=== PATIENT | male | born 1950 | race American Indian/Alaskan Native ===

== ENCOUNTER 2019-09-12 16:17 | Emergency (ER) | payer MEDICARE, OTHER ==
--- NOTE | 2019-09-12 16:52 | EDM.PDOC ---
ED HPI GENERAL MEDICAL PROBLEM - General Chief Complaint: Genitourinary Problem Stated Complaint: JOSEF CAME OUT Time Seen by Provider: 09/12/19 16:19 Source of Information: Reports: Patient History Limitations: Reports: No Limitations - History of Present Illness INITIAL COMMENTS - FREE TEXT/NARRATIVE: Presents reporting about 2-3 months ago he could no longer urinate. A Matthews catheter was placed by his primary provider in [place], [place]. He has been wearing a leg bag keeping the Matthews catheter in until this past Wednesday when he saw Dr. Rashid in [place]. Dr. Rashid did a cystoscope. The patient states he found no problems but inserted a new Matthews catheter. The patient states that last night he noticed some burning and irritation in his penis. He last emptied his bag about 12 hours ago and there has been very little urine output today. He states that he has drank the same amount that he usually does. He denies fever or any other symptoms. He does feel a lot of crampy pressure over his bladder - Related Data Allergies Allergy/AdvReac Type Severity Reaction Status Date / Time aspirin Allergy Hives Verified 09/12/19 16:23 Home Meds: Home Meds Nitrofurantoin Monohyd/M-Cryst [Macrobid 100 mg Capsule] 1 cap PO BID #14 capsule 09/12/19 [Rx] Past Medical History Genitourinary History: Reports: Other (See Below) Other Genitourinary History: chronic matthews cath Neurological History: Reports: Parkinson's - Infectious Disease History Infectious Disease History: Reports: Chicken Pox Social & Family History - Family History Family Medical History: Noncontributory - Tobacco Use Smoking Status *Q: Never Smoker - Caffeine Use Caffeine Use: Reports: None - Recreational Drug Use Recreational Drug Use: No ED ROS GENERAL - Review of Systems Review Of Systems: Comprehensive ROS is negative, except as noted in HPI. ED EXAM, GI/ABD - Physical Exam Exam: See Below Exam Limited By: No Limitations General Appearance: Alert, No Apparent Distress Ears: Normal External Exam Nose: Normal Inspection Throat/Mouth: Normal Inspection Head: Atraumatic, Normocephalic Neck: Normal Inspection Respiratory/Chest: No Respiratory Distress, Lungs Clear, Normal Breath Sounds Cardiovascular: Normal Peripheral Pulses, Regular Rate, Rhythm, No Murmur (Male) Exam: Other (Tenderness over bladder. Matthews catheter in place connected to leg bag draining clear delma urine) Back Exam: Normal Inspection Extremities: Normal Inspection Neurological: Alert, Oriented, Normal Cognition Psychiatric: Normal Affect, Normal Mood Skin Exam: Warm, Dry, Intact, Normal Color, No Rash Lymphatic: No Adenopathy Course - Vital Signs Last Recorded V/S: Last Vital Signs Temp 36.0 C 09/12/19 16:24 Pulse 78 09/12/19 16:24 Resp 18 09/12/19 16:24 BP 159/87 H 09/12/19 16:24 Pulse Ox 100 09/12/19 16:24 - Orders/Labs/Meds Orders: Active Orders 24 hr Category Date Time Status Matthews Catheter Insertion [Insert Urinary Catheter] [OM. Care 09/12/19 16:45 Ordered PC] Q24H Urinary Catheter Assessment [RC] ASDIRECTED Care 09/12/19 16:36 Active Labs: Laboratory Tests 09/12/19 Range/Units 17:05 Urine Color YELLOW Urine Appearance SLT CLOUDY Urine pH 6.0 (5.0-8.0) Ur Specific Bishop 1.010 (1.001-1.035) Urine Protein 30 H (NEGATIVE) mg/dL Urine Glucose (UA) NEGATIVE (NEGATIVE) mg/dL Urine Ketones NEGATIVE (NEGATIVE) mg/dL Urine Occult Blood SMALL H (NEGATIVE) Urine Nitrite POSITIVE H (NEGATIVE) Urine Bilirubin NEGATIVE (NEGATIVE) Urine Urobilinogen 0.2 (<2.0) EU/dL Ur Leukocyte Esterase MODERATE H (NEGATIVE) Urine RBC 1-3 (0-2/HPF) Urine WBC 20-30 (0-5/HPF) Ur Epithelial Cells RARE (NONE-FEW) Urine Bacteria 3+ H (NEGATIVE) - Re-Assessments/Exams Free Text/Narrative Re-Assessment/Exam: 09/12/19 17:39 On further examination, nursing noticed that the catheter was kinked. The leg bag filled to 400cc quickly and was emptied. Free Text/Narrative Re-Assessment/Exam: 09/12/19 17:42 An additional 400 mL was drained from the catheter, the patient states that the bladder pressure was relieved. Departure - Departure Time of Disposition: 17:43 Disposition: Home, Self-Care 01 Condition: Good Clinical Impression: Urinary tract infection Qualifiers: Urinary tract infection type: catheter-associated UTI - Discharge Information Referrals: PCP,Not In Area [Primary Care Provider] - Domingo Rashid MD [Physician] - Forms: ED Department Discharge Additional Instructions: 1. Keep urinary catheter and tubing free of kinks. 2. Take Your antibiotic twice daily starting today 3. Drink Plenty of fluids 4. Follow up with your primary provider in [place] or Dr. Rashid in urology 5. Turn promptly for back pain, fever. Sepsis Event Note - Evaluation Sepsis Screening Result: No Definite Risk - Focused Exam Vital Signs: Vital Signs Temp Pulse Resp BP Pulse Ox 09/12/19 16:24 36.0 C 78 18 159/87 H 100 Date Exam was Performed: 09/12/19 Time Exam was Performed: 17:39 - My Orders Last 24 Hours: My Active Orders 09/12/19 16:36 Urinary Catheter Assessment [RC] ASDIRECTED 09/12/19 16:45 Matthews Catheter Insertion [Insert Urinary Catheter] [OM.PC] Q24H - Assessment/Plan Last 24 Hours: My Active Orders 09/12/19 16:36 Urinary Catheter Assessment [RC] ASDIRECTED 09/12/19 16:45 Matthews Catheter Insertion [Insert Urinary Catheter] [OM.PC] Q24H
== END 2019-09-12 18:05 | disposition home or self-care (01) ==
LOC: MW.ED 16:17
DX: T83.511A Infection and inflammatory reaction due to indwelling urethral catheter, initial encounter (principal); N39.0 Urinary tract infection, site not specified; Z88.8 Allergy status to other drugs, medicaments and biological substances
CPT/HCPCS: 81001; 99283

== ENCOUNTER 2020-02-14 18:41 | Inpatient (IN) | payer MEDICARE, MEDICAID ==
[2020-02-14] MEDS: Lactated Ringers 1,000 ML IV SCH (20:50)
[2020-02-14] MEDS: cefTRIAXone 1 GM in Premix Bag 1 BAG IV SCH (22:05)
[2020-02-14] MEDS ORDERED: Acetaminophen/HYDROcodone 325-5 MG Tab PO ONE (22:14)
[2020-02-15] MEDS: Lactated Ringers 1,000 ML IV SCH ×2 (07:31→20:47)
[2020-02-15 07:41] LABS: BLOOD UREA NITROGEN,BUN 16 mg/dL (7.0-18.0); CARBON DIOXIDE,CO2 26.4 mmol/L (21.0-32.0); CHLORIDE,CL 102 mmol/L (98-107); GLUCOSE RANDOM 243 mg/dL (74-106); POTASSIUM,K 4.6 mmol/L (3.5-5.1); SODIUM,NA 137 mmol/L (136-148)
[2020-02-15] MEDS: cefTRIAXone 1 GM in Premix Bag 1 BAG IV SCH ×2 (09:45→22:02)
[2020-02-15] MEDS: Insulin Aspart 100 Units/ML 3 ML Pen SUBCUT SCH ×2 (12:42→18:24)
[2020-02-15] MEDS: Carbidopa/Levodopa 25-100 MG Tab PO SCH ×2 (17:04→22:15)
[2020-02-15] MEDS: RIVASTIGMINE 1.5 MG PO SCH (17:05)
[2020-02-15] MEDS: Gabapentin 800 MG Tab PO SCH (20:46)
[2020-02-16] MEDS: Carbidopa/Levodopa 25-100 MG Tab PO SCH ×3 (06:00→22:06)
[2020-02-16 07:20] LABS: BLOOD UREA NITROGEN,BUN 21 mg/dL (7.0-18.0); CARBON DIOXIDE,CO2 24.8 mmol/L (21.0-32.0); CHLORIDE,CL 102 mmol/L (98-107); GLUCOSE RANDOM 241 mg/dL (74-106); POTASSIUM,K 4.6 mmol/L (3.5-5.1); SODIUM,NA 135 mmol/L (136-148)
[2020-02-16 07:22] LABS: HEMOGLOBIN A1C 10.6 % (4.5-6.2)
[2020-02-16] MEDS: Insulin Aspart 100 Units/ML 3 ML Pen SUBCUT SCH ×3 (07:24→17:14)
[2020-02-16] MEDS: RIVASTIGMINE 1.5 MG PO SCH ×3 (08:13→20:16)
[2020-02-16] MEDS: Lactated Ringers 1,000 ML IV SCH ×2 (08:33→20:20)
[2020-02-16] MEDS: Gabapentin 800 MG Tab PO SCH ×4 (08:52→20:11)
[2020-02-16] MEDS: Pimavanserin Tartrate [Nuplazid] 34 MG PO SCH ×2 (09:00→12:26)
[2020-02-16] MEDS: cefTRIAXone 1 GM in Premix Bag 1 BAG IV SCH ×2 (09:38→21:11)
--- NOTE | 2020-02-16 09:39 | PCM.SN.2 ---
- Free Text/Narrative Note: Arrived to see the patient this AM for Pre-Op exam for TURP. Nursing informed me the patient continued to be confused during the night and even required 1:1 care. After electronically reviewing the patients history CBC, BMP, Mg, HgA1C were ordered. Of note, HgA1C was 10.6 today, it was 8.5 in Nov 2019, hypomagnesemia, and UTI. Discussed this patient and lab findings with Dr Sim At this time due to the patients uncontrolled DM and continued confusion we will be cancelling surgery for today. Dr Rashid was informed by Dr Sim and agrees at this time.
--- NOTE | 2020-02-16 10:59 | PN ---
Due to concerns from the Anesthesia Department regarding his hemoglobin A1c, his confusion, his low magnesium, Anesthesia were not comfortable proceeding with the surgery. I have asked Dr. Lowry, hospitalist, to see him and see if things can be made better for the patient. In the meantime, I scanned his bladder this morning when he had about 170 mL of residual urine in his bladder, which is not large enough to require surgery. He has been voiding relatively small amounts of about 100 mL at a time and has not required to be catheterized. My plan is to see if we can make him better and probably to send him home. INDIGO GILLESPIE /[id number]
--- NOTE | 2020-02-16 11:32 | CR ---
Chest: Portable view of the chest was obtained. Comparison: No prior chest imaging. Heart size is normal. Mild tortuosity of the thoracic aorta is seen. Electrostimulating device overlies the left chest. Lungs otherwise are clear. Bony structures are grossly intact. Impression: 1. Nothing acute is definitely appreciated on frontal chest x-ray. Diagnostic code #2 This report was dictated in MDT
--- NOTE | 2020-02-16 11:33 | PCM.CONS ---
H&P History of Present Illness - General Date of Service: 02/16/20 Admit Problem/Dx: Admission Diagnosis/Problem Admission Diagnosis/Problem Transurethral prostatectomy - History of Present Illness Initial Comments - Free Text/Narative: 69 yo male with pmh of DM and BPH with advanced Parkinson with brain stimulator implanted in 2012. Patient is wheelchair bound at home and lives with son. Son reports patient has been hallucinating for the past four months. His memory and dementia has also been worsening. AT night the patient hardly sleeps due as he is afraid of his hallucinations. Due to his BPH he had been needing to go to the bathroom frequently at night. Patient has been taking Sinemet, Nuplazid, and rivastigmine. For his Diabetes he has been switch from a long acting insulin to a short acting correctional insulin. A few months ago a Matthews was placed due to urinary retention. He was seen in Dr. Rashid's clinic yesterday and patient was admitted with plans of TURP. This morning hospitalist were consulted due to concerns of his psychosis and diabetes. Bilateral Leg Pain Score (Numeric/FACES): 10 - Related Data Allergies/Adverse Reactions: Allergies Allergy/AdvReac Type Severity Reaction Status Date / Time aspirin Allergy Hives Verified 09/12/19 16:23 Penicillins Allergy Anxiety Verified 02/14/20 19:47 tetracycline Allergy Other Verified 02/14/20 19:49 Home Medications: Home Meds Nitrofurantoin Monohyd/M-Cryst [Macrobid 100 mg Capsule] 1 cap PO BID #14 capsule 09/12/19 [Rx] Albuterol/Ipratropium [DuoNeb 3.0-0.5 MG/3 ML] 3 ml .XX Q4H PRN 02/15/20 [ History] Carbidopa/Levodopa [Carbidopa-Levo 25-100 MG ODT] 1 tab PO TID 02/15/20 [History ] Gabapentin [Neurontin] 800 mg PO BID 02/15/20 [History] Losartan Potassium 25 mg PO DAILY 02/15/20 [History] Melatonin/Pyridoxine HCl (B6) [Melatonin 3 mg Tablet] 3 mg PO BEDTIME 02/15/20 [ History] Meloxicam [Mobic] 15 mg PO ACLUNCH 02/15/20 [History] Omeprazole 20 mg PO DAILY 02/15/20 [History] Pimavanserin Tartrate [Nuplazid] 34 mg PO DAILY 02/15/20 [History] Rivastigmine [Exelon] 1.5 mg PO BIDM 02/15/20 [History] Tamsulosin HCl [Flomax] 0.8 mg PO BEDTIME 02/15/20 [History] glyBURIDE [Glyburide] 5 mg PO DAILY 02/15/20 [History] metFORMIN HCl [Fortamet] 1,000 mg PO DAILY 02/15/20 [History] Past Medical History - Past Health History Medical/Surgical History: Denies Medical/Surgical History Genitourinary History: Reports: Other (See Below) Other Genitourinary History: chronic matthews cath Neurological History: Reports: Parkinson's Endocrine/Metabolic History: Reports: Diabetes, Type II Oncologic (Cancer) History: Reports: Bladder - Infectious Disease History Infectious Disease History: Reports: Chicken Pox Social & Family History - Family History Family Medical History: Noncontributory - Tobacco Use Smoking Status *Q: Never Smoker - Caffeine Use Caffeine Use: Reports: None - Recreational Drug Use Recreational Drug Use: No H&P Review of Systems - Review of Systems: Review Of Systems: Comprehensive ROS is negative, except as noted in HPI. Exam - Exam Exam: See Below - Vital Signs Vital Signs: Last Vital Signs Temp 36.7 C 02/16/20 11:00 Pulse 89 02/16/20 11:00 Resp 14 02/16/20 11:00 BP 160/80 H 02/16/20 11:00 Pulse Ox 98 02/16/20 11:00 Weight: 73.482 kg - Exam General: Alert HEENT: Mucosa Moist & Heartwell Lungs: Clear to Auscultation, Normal Respiratory Effort Cardiovascular: Regular Rate, Regular Rhythm GI/Abdominal Exam: Normal Bowel Sounds, Soft, Non-Tender Extremities: Non-Tender, No Pedal Edema Skin: Warm, Dry, Intact Neurological: Cranial Nerves Intact. No: Normal Tone Psychiatric: Hallucinations, Other (flat affect) - Patient Data Lab Results Last 24 hrs: Laboratory Results - last 24 hr 02/15/20 02/16/20 02/16/20 Range/Units 17:07 06:04 06:37 WBC (4.0-11.0) K/uL RBC (4.50-5.90) M/uL Hgb (13.0-17.0) g/dL Hct (38.0-50.0) % MCV (80.0-98.0) fL MCH (27.0-32.0) pg MCHC (31.0-37.0) g/dL RDW Std Deviation (28.0-62.0) fl RDW Coeff of Ronan (11.0-15.0) % Plt Count (150-400) K/uL MPV (7.40-12.00) fL Neut % (Auto) (48.0-80.0) % Lymph % (Auto) (16.0-40.0) % Waller % (Auto) (0.0-15.0) % Eos % (Auto) (0.0-7.0) % Baso % (Auto) (0.0-1.5) % Neut # (Auto) (1.4-5.7) K/uL Lymph # (Auto) (0.6-2.4) K/uL Waller # (Auto) (0.0-0.8) K/uL Eos # (Auto) (0.0-0.7) K/uL Baso # (Auto) (0.0-0.1) K/uL Nucleated RBC % /100WBC Nucleated RBCs # K/uL Sodium (136-148) mmol/L Potassium (3.5-5.1) mmol/L Chloride (98-107) mmol/L Carbon Dioxide (21.0-32.0) mmol/L BUN (7.0-18.0) mg/dL Creatinine (0.8-1.3) mg/dL Est Cr Clr Drug Dosing mL/min Estimated GFR (MDRD) ml/min Glucose (74-106) mg/dL POC Glucose 224 H 226 H (60-110) mg/dL Hemoglobin A1c 10.6 H (4.5-6.2) % Calcium (8.5-10.1) mg/dL Magnesium (1.8-2.4) mg/dL 02/16/20 02/16/20 02/16/20 Range/Units 06:37 06:37 06:37 WBC 6.49 (4.0-11.0) K/uL RBC 3.86 L (4.50-5.90) M/uL Hgb 11.0 L (13.0-17.0) g/dL Hct 32.8 L (38.0-50.0) % MCV 85.0 (80.0-98.0) fL MCH 28.5 (27.0-32.0) pg MCHC 33.5 (31.0-37.0) g/dL RDW Std Deviation 45.5 (28.0-62.0) fl RDW Coeff of Ronan 15 (11.0-15.0) % Plt Count 293 (150-400) K/uL MPV 10.60 (7.40-12.00) fL Neut % (Auto) 51.4 (48.0-80.0) % Lymph % (Auto) 32.5 (16.0-40.0) % Waller % (Auto) 10.2 (0.0-15.0) % Eos % (Auto) 5.1 (0.0-7.0) % Baso % (Auto) 0.8 (0.0-1.5) % Neut # (Auto) 3.3 (1.4-5.7) K/uL Lymph # (Auto) 2.1 (0.6-2.4) K/uL Waller # (Auto) 0.7 (0.0-0.8) K/uL Eos # (Auto) 0.3 (0.0-0.7) K/uL Baso # (Auto) 0.1 (0.0-0.1) K/uL Nucleated RBC % 0.0 /100WBC Nucleated RBCs # 0 K/uL Sodium 135 L (136-148) mmol/L Potassium 4.6 (3.5-5.1) mmol/L Chloride 102 (98-107) mmol/L Carbon Dioxide 24.8 (21.0-32.0) mmol/L BUN 21 H (7.0-18.0) mg/dL Creatinine 1.0 (0.8-1.3) mg/dL Est Cr Clr Drug Dosing 69.72 mL/min Estimated GFR (MDRD) > 60.0 ml/min Glucose 241 H (74-106) mg/dL POC Glucose (60-110) mg/dL Hemoglobin A1c (4.5-6.2) % Calcium 8.7 (8.5-10.1) mg/dL Magnesium 1.5 L (1.8-2.4) mg/dL 02/16/20 Range/Units 11:03 WBC (4.0-11.0) K/uL RBC (4.50-5.90) M/uL Hgb (13.0-17.0) g/dL Hct (38.0-50.0) % MCV (80.0-98.0) fL MCH (27.0-32.0) pg MCHC (31.0-37.0) g/dL RDW Std Deviation (28.0-62.0) fl RDW Coeff of Ronan (11.0-15.0) % Plt Count (150-400) K/uL MPV (7.40-12.00) fL Neut % (Auto) (48.0-80.0) % Lymph % (Auto) (16.0-40.0) % Waller % (Auto) (0.0-15.0) % Eos % (Auto) (0.0-7.0) % Baso % (Auto) (0.0-1.5) % Neut # (Auto) (1.4-5.7) K/uL Lymph # (Auto) (0.6-2.4) K/uL Waller # (Auto) (0.0-0.8) K/uL Eos # (Auto) (0.0-0.7) K/uL Baso # (Auto) (0.0-0.1) K/uL Nucleated RBC % /100WBC Nucleated RBCs # K/uL Sodium (136-148) mmol/L Potassium (3.5-5.1) mmol/L Chloride (98-107) mmol/L Carbon Dioxide (21.0-32.0) mmol/L BUN (7.0-18.0) mg/dL Creatinine (0.8-1.3) mg/dL Est Cr Clr Drug Dosing mL/min Estimated GFR (MDRD) ml/min Glucose (74-106) mg/dL POC Glucose 241 H (60-110) mg/dL Hemoglobin A1c (4.5-6.2) % Calcium (8.5-10.1) mg/dL Magnesium (1.8-2.4) mg/dL Result Diagrams: 02/16/20 06:37 02/16/20 06:37 Sepsis Event Note - Evaluation Sepsis Screening Result: No Definite Risk - Focused Exam Vital Signs: Vital Signs Temp Pulse Resp BP Pulse Ox 02/16/20 11:00 36.7 C 89 14 160/80 H 98 02/16/20 07:46 36.6 C 02/16/20 07:43 97 16 190/86 H 100 02/16/20 03:00 36.7 C 86 14 180/84 H 98 Date Exam was Performed: 02/16/20 Time Exam was Performed: 22:08 Consult PN Assessment/Plan Procedures: Procedures ASSAY OF PSA TOTAL (11/08/17) CYSTOSCOPY (10/28/16) EMERGENCY DEPT VISIT (09/12/19) ROUTINE VENIPUNCTURE (11/08/17) URINALYSIS AUTO W/SCOPE (09/12/19) URINALYSIS NONAUTO W/SCOPE (11/14/14) URINE CULTURE/COLONY COUNT (11/08/17) Problem List Initiated/Reviewed/Updated: Yes My Orders Last 24 Hours: My Active Orders 02/16/20 11:03 CXR [Chest 1V Frontal] [CR] Routine UA RFX JERRY AND CULT IF INDIC [URIN] Routine 02/16/20 11:31 Notify Provider Consults [RC] ASDIRECTED Consult to Physician [CONS] Routine Plan: 69 yo male admitted by Dr. rashid for possible TURP due to urinary retention from BPH. Patient has been hallucinating Parkinson's disease with psychosis and dementia: This appears to be a chronic condition that is worsening will rule out acute infection with UA and chest x- ray. Patient has been on Rocephin and tobramycin Diabetes: would recommend diabetic diet if patient is not going to OR and continue sliding scale insulin. Hgb is 10 so patient may benefit from a long acting insulin. Hypomagnesia: replacing BPH: Dr. Rashid to determine if TURP is indicated. Matthews has been removed.
[2020-02-16] MEDS ORDERED: Magnesium Sulfate/Water 2 GM in Premix Bag 1 BAG IV ONE (11:45)
--- NOTE | 2020-02-16 13:40 | PCM.CONS ---
H&P History of Present Illness - General Date of Service: 02/16/20 Admit Problem/Dx: Admission Diagnosis/Problem Admission Diagnosis/Problem Transurethral prostatectomy He was admitted for TURBT. Since being in the hospital, he has been confused. Patient is a poor historian. He endorses hallucinations that can be scary but doesnt remember what they are. He is in pain all over. I obtained most of the history from his son Justin. He has 24 hour hallucinations. He wont sleep. He thinks that people are after him. He takes Nuplazid, which Justin doesnt think is working. He has had hallucinations for 2 years, worse in the last 6-9 months. He has no peace. He has paranoia. He still takes Seroquel at night. He was prescribed 50 mg qhs. Justin increased the Seroquel to 100 mg, which only helped for a couple nights. His neurologist is in [place], and it has been almost a year since last visit because of transportation issues. He has been nursing facility, last 5-6 months ago. Justin took him out because he wanted to come home. He has had Parkinsons disease for 19 years. He has had falls, not recently. The DBS has helped with tremor. Bilateral Leg Pain Score (Numeric/FACES): 10 - Related Data Allergies/Adverse Reactions: Allergies Allergy/AdvReac Type Severity Reaction Status Date / Time aspirin Allergy Hives Verified 09/12/19 16:23 Penicillins Allergy Anxiety Verified 02/14/20 19:47 tetracycline Allergy Other Verified 02/14/20 19:49 Home Medications: Home Meds Nitrofurantoin Monohyd/M-Cryst [Macrobid 100 mg Capsule] 1 cap PO BID #14 capsule 09/12/19 [Rx] Albuterol/Ipratropium [DuoNeb 3.0-0.5 MG/3 ML] 3 ml .XX Q4H PRN 02/15/20 [ History] Carbidopa/Levodopa [Carbidopa-Levo 25-100 MG ODT] 1 tab PO TID 02/15/20 [History ] Gabapentin [Neurontin] 800 mg PO BID 02/15/20 [History] Losartan Potassium 25 mg PO DAILY 02/15/20 [History] Melatonin/Pyridoxine HCl (B6) [Melatonin 3 mg Tablet] 3 mg PO BEDTIME 02/15/20 [ History] Meloxicam [Mobic] 15 mg PO ACLUNCH 02/15/20 [History] Omeprazole 20 mg PO DAILY 02/15/20 [History] Pimavanserin Tartrate [Nuplazid] 34 mg PO DAILY 02/15/20 [History] Rivastigmine [Exelon] 1.5 mg PO BIDM 02/15/20 [History] Tamsulosin HCl [Flomax] 0.8 mg PO BEDTIME 02/15/20 [History] glyBURIDE [Glyburide] 5 mg PO DAILY 02/15/20 [History] metFORMIN HCl [Fortamet] 1,000 mg PO DAILY 02/15/20 [History] Past Medical History - Past Health History Medical/Surgical History: Denies Medical/Surgical History Genitourinary History: Reports: Other (See Below) Other Genitourinary History: chronic matthews cath Neurological History: Reports: Parkinson's Endocrine/Metabolic History: Reports: Diabetes, Type II Oncologic (Cancer) History: Reports: Bladder - Infectious Disease History Infectious Disease History: Reports: Chicken Pox Social & Family History - Family History Family Medical History: Noncontributory - Tobacco Use Smoking Status *Q: Never Smoker - Caffeine Use Caffeine Use: Reports: None - Recreational Drug Use Recreational Drug Use: No H&P Review of Systems - Review of Systems: Review Of Systems: Unable To Obtain Reason Not Obtained: mental status Exam - Exam Exam: See Below - Vital Signs Vital Signs: Last Vital Signs Temp 36.7 C 02/16/20 11:00 Pulse 89 02/16/20 11:00 Resp 14 02/16/20 11:00 BP 160/80 H 02/16/20 11:00 Pulse Ox 98 02/16/20 11:00 Weight: 73.482 kg - Exam Physical Exam Comments:: Constitutional: No acute distress Psychiatric: Mood/Affect: blunted affect Neurological: Mental Status: Level of consciousness: Awake, alert. Orientation: Oriented to year. States location airport then [place] then self -corrected to [place]. Concentration/Attention Span: Impaired Comprehension/Praxis: Able to perform a three step command. Fund of Knowledge/memory: Impaired recall Language: hypophonia, naming intact, impaired repeat Thought Content: Hallucinations Insight/Judgement: Impaired Cranial Nerves: Pupils equally round and reactive to light. Visual simon unreliable. . Gaze conjugate, EOMI. Facial strength is full and symmetric. Palate elevates symmetrically. Normal shrug bilaterally. Tongue protrudes midline Motor: Mildly increased tone. Strength testing limited by cooperation, but there is suggestion of distal weakness Sensation: Sensory exam unreliable. Deep tendon reflexes: Diminished Coordination: Finger to finger appeared to attempt but aimed several inches away. Moderate right and marked left upper limb dysdiadokinesis Gait: not assessed - Patient Data Lab Results Last 24 hrs: Laboratory Results - last 24 hr 02/15/20 02/16/20 02/16/20 Range/Units 17:07 06:04 06:37 WBC (4.0-11.0) K/uL RBC (4.50-5.90) M/uL Hgb (13.0-17.0) g/dL Hct (38.0-50.0) % MCV (80.0-98.0) fL MCH (27.0-32.0) pg MCHC (31.0-37.0) g/dL RDW Std Deviation (28.0-62.0) fl RDW Coeff of Ronan (11.0-15.0) % Plt Count (150-400) K/uL MPV (7.40-12.00) fL Neut % (Auto) (48.0-80.0) % Lymph % (Auto) (16.0-40.0) % Chester % (Auto) (0.0-15.0) % Eos % (Auto) (0.0-7.0) % Baso % (Auto) (0.0-1.5) % Neut # (Auto) (1.4-5.7) K/uL Lymph # (Auto) (0.6-2.4) K/uL Chester # (Auto) (0.0-0.8) K/uL Eos # (Auto) (0.0-0.7) K/uL Baso # (Auto) (0.0-0.1) K/uL Nucleated RBC % /100WBC Nucleated RBCs # K/uL Sodium (136-148) mmol/L Potassium (3.5-5.1) mmol/L Chloride (98-107) mmol/L Carbon Dioxide (21.0-32.0) mmol/L BUN (7.0-18.0) mg/dL Creatinine (0.8-1.3) mg/dL Est Cr Clr Drug Dosing mL/min Estimated GFR (MDRD) ml/min Glucose (74-106) mg/dL POC Glucose 224 H 226 H (60-110) mg/dL Hemoglobin A1c 10.6 H (4.5-6.2) % Calcium (8.5-10.1) mg/dL Magnesium (1.8-2.4) mg/dL 02/16/20 02/16/20 02/16/20 Range/Units 06:37 06:37 06:37 WBC 6.49 (4.0-11.0) K/uL RBC 3.86 L (4.50-5.90) M/uL Hgb 11.0 L (13.0-17.0) g/dL Hct 32.8 L (38.0-50.0) % MCV 85.0 (80.0-98.0) fL MCH 28.5 (27.0-32.0) pg MCHC 33.5 (31.0-37.0) g/dL RDW Std Deviation 45.5 (28.0-62.0) fl RDW Coeff of Ronan 15 (11.0-15.0) % Plt Count 293 (150-400) K/uL MPV 10.60 (7.40-12.00) fL Neut % (Auto) 51.4 (48.0-80.0) % Lymph % (Auto) 32.5 (16.0-40.0) % Chester % (Auto) 10.2 (0.0-15.0) % Eos % (Auto) 5.1 (0.0-7.0) % Baso % (Auto) 0.8 (0.0-1.5) % Neut # (Auto) 3.3 (1.4-5.7) K/uL Lymph # (Auto) 2.1 (0.6-2.4) K/uL Chester # (Auto) 0.7 (0.0-0.8) K/uL Eos # (Auto) 0.3 (0.0-0.7) K/uL Baso # (Auto) 0.1 (0.0-0.1) K/uL Nucleated RBC % 0.0 /100WBC Nucleated RBCs # 0 K/uL Sodium 135 L (136-148) mmol/L Potassium 4.6 (3.5-5.1) mmol/L Chloride 102 (98-107) mmol/L Carbon Dioxide 24.8 (21.0-32.0) mmol/L BUN 21 H (7.0-18.0) mg/dL Creatinine 1.0 (0.8-1.3) mg/dL Est Cr Clr Drug Dosing 69.72 mL/min Estimated GFR (MDRD) > 60.0 ml/min Glucose 241 H (74-106) mg/dL POC Glucose (60-110) mg/dL Hemoglobin A1c (4.5-6.2) % Calcium 8.7 (8.5-10.1) mg/dL Magnesium 1.5 L (1.8-2.4) mg/dL / Range/Units 11:03 WBC (4.0-11.0) K/uL RBC (4.50-5.90) M/uL Hgb (13.0-17.0) g/dL Hct (38.0-50.0) % MCV (80.0-98.0) fL MCH (27.0-32.0) pg MCHC (31.0-37.0) g/dL RDW Std Deviation (28.0-62.0) fl RDW Coeff of Ronan (11.0-15.0) % Plt Count (150-400) K/uL MPV (7.40-12.00) fL Neut % (Auto) (48.0-80.0) % Lymph % (Auto) (16.0-40.0) % [place] % (Auto) (0.0-15.0) % Eos % (Auto) (0.0-7.0) % Baso % (Auto) (0.0-1.5) % Neut # (Auto) (1.4-5.7) K/uL Lymph # (Auto) (0.6-2.4) K/uL [place] # (Auto) (0.0-0.8) K/uL Eos # (Auto) (0.0-0.7) K/uL Baso # (Auto) (0.0-0.1) K/uL Nucleated RBC % /100WBC Nucleated RBCs # K/uL Sodium (136-148) mmol/L Potassium (3.5-5.1) mmol/L Chloride (98-107) mmol/L Carbon Dioxide (21.0-32.0) mmol/L BUN (7.0-18.0) mg/dL Creatinine (0.8-1.3) mg/dL Est Cr Clr Drug Dosing mL/min Estimated GFR (MDRD) ml/min Glucose (74-106) mg/dL POC Glucose 241 H (60-110) mg/dL Hemoglobin A1c (4.5-6.2) % Calcium (8.5-10.1) mg/dL Magnesium (1.8-2.4) mg/dL Result Diagrams: 02/16/20 06:37 02/16/20 06:37 Sepsis Event Note - Evaluation Sepsis Screening Result: No Definite Risk - Focused Exam Vital Signs: Vital Signs Temp Pulse Resp BP Pulse Ox 02/16/20 11:00 36.7 C 89 14 160/80 H 98 02/16/20 07:46 36.6 C 02/16/20 07:43 97 16 190/86 H 100 02/16/20 03:00 36.7 C 86 14 180/84 H 98 Date Exam was Performed: 02/16/20 Time Exam was Performed: 13:34 Consult PN Assessment/Plan Procedures: Procedures ASSAY OF PSA TOTAL (11/08/17) CYSTOSCOPY (10/28/16) EMERGENCY DEPT VISIT (09/12/19) ROUTINE VENIPUNCTURE (11/08/17) URINALYSIS AUTO W/SCOPE (09/12/19) URINALYSIS NONAUTO W/SCOPE (11/14/14) URINE CULTURE/COLONY COUNT (11/08/17) (1) Parkinsons disease SNOMED Code(s): 75022662 Code(s): G20 - PARKINSON'S DISEASE Current Visit: Yes (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 Unfortunately, psychosis has become refractory, and increasing Seroquel dose has had little impact. I did discuss increasing his acetylcholine esterase inhibitor, which has a chance of helping a little with the agitation. His agitation may also be worse because he is hospital, but it sounds like it had already become severe on chronic basis. His recurrent UTIs have been associated with worsening agitation / psychosis Recommendations: -Increase rivastigmine to 3 mg BID. -UA for evaluation of UTI is pending Problem List Initiated/Reviewed/Updated: Yes
[2020-02-17] MEDS: Carbidopa/Levodopa 25-100 MG Tab PO SCH ×2 (06:19→13:38)
[2020-02-17] MEDS: Lactated Ringers 1,000 ML IV SCH (07:03)
[2020-02-17] MEDS: Pimavanserin Tartrate [Nuplazid] 34 MG PO SCH (07:59)
[2020-02-17] MEDS: RIVASTIGMINE 1.5 MG PO SCH (07:59)
[2020-02-17] MEDS: Gabapentin 800 MG Tab PO SCH (08:00)
[2020-02-17] MEDS: Insulin Aspart 100 Units/ML 3 ML Pen SUBCUT SCH ×2 (08:00→12:57)
[2020-02-17] MEDS ORDERED: cefTRIAXone 1 GM in Premix Bag 1 BAG IV SCH (11:45)
--- NOTE | 2020-02-18 13:17 | DISCH ---
DATE OF DISCHARGE: 02/17/2020 PRIMARY CARE PHYSICIAN: Avni Nielson A 69 years old, he was admitted to the hospital with urinary problems, possibly leading to a TURP. His initial evaluation showed that he had a Jerez catheter in. He was seen in the office for that. Apparently, we were told that he could not void without the catheter. While in the hospital, he was given IV antibiotics to get rid of infection in preparation for surgery; however, it appeared that he was able to void when the catheter was taken out with a residual urine, that was around 150 to 200 mL. In consultation, he was seen by the bait maker, Dr. Lowry, and a neurologist, Dr. Caballero, who suggested increasing one of his Parkinson's medications. He was observed for an extra day and was sent home. At the time of discharge, he was able to void. His postvoid residual is acceptable. He is not having any incontinence during the day. He might need some protection at night. His lab work on 02/15 included a BUN 21, creatinine of 1.0. His blood sugar was 241. His hemoglobin A1c was 10.6. His urine showed 6 to 12 red blood cells per high-power field, 8 to 20 white blood cells per high-power field. A urine culture is started. His urine also showed excess glucose and a lot of protein, significant proteinuria. His hemoglobin was 11, his white blood count was 6.49. The medication that was doubled was rivastigmine, instead 1.5 mg daily, it was raised to 1.5 twice a day. Gabapentin, Neurontin at 800 mg twice a day is probably excessive and maybe can be reduced to 400 twice a day. I will leave that up to the discretion of the primary care provider. INDIGO / JOSE MIGUEL /[id number]
== END 2020-02-17 17:10 | disposition home or self-care (01) | DRG 726 ==
LOC: OBSVTOIN 18:41 → MW.MS 18:41 → INTOOBSV 18:41 → MW.MS 19:45 → OBSVTOIN 19:45 → MW.MS 02-15 15:37
PROVIDERS: ADMIT Urology; ATTEND Urology
DX: N40.1 Benign prostatic hyperplasia with lower urinary tract symptoms (principal); N39.0 Urinary tract infection, site not specified; F06.2 Psychotic disorder with delusions due to known physiological condition; R33.8 Other retention of urine; G20 Parkinson's disease; F02.80 Dementia in other diseases classified elsewhere, unspecified severity, without behavioral disturbance, psychotic disturbance, mood disturbance, and anxiety; E83.42 Hypomagnesemia; E11.65 Type 2 diabetes mellitus with hyperglycemia; Z88.0 Allergy status to penicillin; Z88.6 Allergy status to analgesic agent; Z88.8 Allergy status to other drugs, medicaments and biological substances; Z79.84 Long term (current) use of oral hypoglycemic drugs
CPT/HCPCS: 36415; 51701; 71045; 71045-26; 80048; 81001; 82962; 83036; 83735; 85025; 87086; A9270-GY; J0696; J1815-GY; J3260; J3475; J7050; J7120; U0002